=== PATIENT | male | born 1980 | race Two or more races ===

== ENCOUNTER 2018-04-08 11:33 | Emergency (ER) | payer SELFPAY ==
[2018-04-08] MEDS ORDERED: Ketorolac 60 MG/2 ML SDV IM ONE (12:24)
--- NOTE | 2018-04-08 13:33 | CR ---
EXAMINATION: Lumbar spine HISTORY: Pain COMPARISON: None TECHNIQUE: AP and lateral views FINDINGS: The lumbar spinal alignment is normal. The vertebral body heights and disc spaces appear well-maintained. No fracture or acute osseous or metallic. Bone mineralization is normal. SI joints are symmetric. IMPRESSION: Unremarkable lumbar spine.
--- NOTE | 2018-04-08 13:47 | EDM.PDOC ---
ED HPI GENERAL MEDICAL PROBLEM - General Chief Complaint: Back Pain or Injury Stated Complaint: BACK PAIN Time Seen by Provider: 04/08/18 11:39 Source of Information: Reports: Patient History Limitations: Reports: No Limitations - History of Present Illness INITIAL COMMENTS - FREE TEXT/NARRATIVE: HISTORY AND PHYSICAL: History of present illness: Patient is a 37-year-old male who presents to the emergency room today with complaints of mid lumbar back pain that radiates into the right side. He states he did not have any injury, trauma or heavy lifting/repetitive motion. States he started having the mid back pain approximately 2-3 days ago which has progressively gotten worse. He states that the muscles feel "stiff". He denies any fever, chills, chest pain, shortness of breath or cough. Denies any abdominal pain, nausea, vomiting, diarrhea, constipation or dysuria. Denies any numbness or tingling to his distal extremities. He has been able to walk appropriately. Review of systems: As per history of present illness and below otherwise all systems reviewed and negative. Past medical history: As per history of present illness and as reviewed below otherwise noncontributory. Surgical history: As per history of present illness and as reviewed below otherwise noncontributory. Social history: See social history for further information Family history: As per history of present illness and as reviewed below otherwise noncontributory. Physical exam: General: Well-developed and well-nourished 37-year-old male. Alert and oriented. Nontoxic appearing and in no acute distress. HEENT: Atraumatic, normocephalic, pupils equal and reactive bilaterally, negative for conjunctival pallor or scleral icterus, mucous membranes moist, TMs normal bilaterally, throat clear, neck supple, nontender, trachea midline. No drooling or trismus noted. No meningeal signs. No hot potato voice noted. Lungs: Clear to auscultation, breath sounds equal bilaterally, chest nontender. Heart: S1S2, regular rate and rhythm without overt murmur Abdomen: Soft, nondistended, nontender. Negative for masses or hepatosplenomegaly. Negative for costovertebral tenderness. Pelvis: Stable nontender. Genitourinary: Deferred. Rectal: Deferred. Skin: Intact, warm, dry. No lesions or rashes noted. C-spine/Back: No pinpoint vertebral tenderness upon palpation. No crepitus, step -offs or obvious deformities. He is ambulatory into the emergency room and able to walk on his heels and toes without difficulty. He denies any numbness, tingling or satellite paresthesias. Denies any urinary or fecal incontinence. He does have some muscular tenderness to the paraspinous muscles to the mid lumbar region and right above the right hip bone. Extremities: Atraumatic, negative for cords or calf pain. Neurovascular unremarkable. Neuro: Awake, alert, oriented. Cranial nerves II through XII unremarkable. Cerebellum unremarkable. Motor and sensory unremarkable throughout. Exam nonfocal. Diagnostics: Lumbar spine x-ray Therapeutics: Toradol Prescription: Tramadol and Flexeril, No. 20 Impression: Lumbar back pain with sciatica Plan: 1. Gentle heat and stretching to the area. 2. Please take ibuprofen routinely along with the medications as prescribed. These medications may cause drowsiness a do not take them all driving or needing to be functioning outside of the house. 3. Please follow-up with your primary caregiver next week. Return to the ED as needed and as discussed. Definitive disposition and diagnosis as appropriate pending reevaluation and review of above. - Related Data Home Meds: Home Meds Cyclobenzaprine [Flexeril] 10 mg PO TID PRN #20 tab 04/08/18 [Rx] traMADol [Ultram] 50 mg PO Q6H PRN #20 tab 04/08/18 [Rx] ED ROS GENERAL - Review of Systems Review Of Systems: ROS reveals no pertinent complaints other than HPI. ED EXAM,LOWER BACK PAIN/INJURY - Physical Exam Exam: See Below (See dictation) Course - Orders/Labs/Meds Meds: Medications Discontinued Medications Generic Name Dose Route Start Last Admin Trade Name Freq PRN Reason Stop Dose Admin Ketorolac Tromethamine 60 mg 04/08/18 12:24 04/08/18 13:34 Toradol IM 04/08/18 12:25 60 mg ONETIME ONE Administration Departure - Departure Time of Disposition: 13:46 Disposition: Home, Self-Care 01 Clinical Impression: Back pain of lumbar region with sciatica - Discharge Information Prescriptions: Cyclobenzaprine [Flexeril] 10 mg PO TID PRN #20 tab PRN Reason: Muscle Spasm traMADol [Ultram] 50 mg PO Q6H PRN #20 tab PRN Reason: Pain Forms: ED Department Discharge Additional Instructions: The following information is given to patients seen in the emergency department who are being discharged to home. This information is to outline your options for follow-up care. We provide all patients seen in our emergency department with a follow-up referral. The need for follow-up, as well as the timing and circumstances, are variable depending upon the specifics of your emergency department visit. If you don't have a primary care physician on staff, we will provide you with a referral. We always advise you to contact your personal physician following an emergency department visit to inform them of the circumstance of the visit and for follow-up with them and/or the need for any referrals to a consulting specialist. The emergency department will also refer you to a specialist when appropriate. This referral assures that you have the opportunity for follow-up care with a specialist. All of these measure are taken in an effort to provide you with optimal care, which includes your follow-up. Under all circumstances we always encourage you to contact your private physician who remains a resource for coordinating your care. When calling for follow-up care, please make the office aware that this follow-up is from your recent emergency room visit. If for any reason you are refused follow-up, please contact the [facility] Emergency Department at and asked to speak to the emergency department charge nurse. [facility] [address] [place], [place] [id number] [place] [id number] 1. Gentle heat and stretching to the area. 2. Please take ibuprofen routinely along with the medications as prescribed. These medications may cause drowsiness a do not take them all driving or needing to be functioning outside of the house. 3. Please follow-up with your primary caregiver next week. Return to the ED as needed and as discussed.
== END 2018-04-08 14:28 | disposition home or self-care (01) ==
LOC: MW.ED 11:33
DX: M54.41 Lumbago with sciatica, right side (principal)
CPT/HCPCS: 72100; 96372; 99283; J1885

== ENCOUNTER 2018-06-14 20:42 | Emergency (ER) | payer SELFPAY ==
--- NOTE | 2018-06-14 20:48 | EDM.PDOC ---
ED HPI GENERAL MEDICAL PROBLEM - General Chief Complaint: Chest Pain Stated Complaint: CHEST PAIN Time Seen by Provider: 06/14/18 20:46 - History of Present Illness INITIAL COMMENTS - FREE TEXT/NARRATIVE: HISTORY AND PHYSICAL: History of present illness: Patient 37 year old male presents with a concern of left-sided chest pain 1 week this is reproducible stenosis at shortest breath nausea vomiting fever chills or other complaints he is a smoker Review of systems: As per history of present illness and below otherwise all systems reviewed and negative. Past medical history: As per history of present illness and as reviewed below otherwise noncontributory. Surgical history: As per history of present illness and as reviewed below otherwise noncontributory. Social history: No reported history of drug or alcohol abuse. Family history: As per history of present illness and as reviewed below otherwise noncontributory. Physical exam: HEENT: Atraumatic, normocephalic, pupils reactive, negative for conjunctival pallor or scleral icterus, mucous membranes moist, throat clear, neck supple, nontender, trachea midline. Lungs: Clear to auscultation, breath sounds equal bilaterally, chest localized tenderness over his left upper chest. Heart: S1S2, regular, negative for clicks, rubs, or JVD. Abdomen: Soft, nondistended, nontender. Negative for masses or hepatosplenomegaly. Negative for costovertebral tenderness. Pelvis: Stable nontender. Genitourinary: Deferred. Rectal: Deferred. Extremities: Atraumatic, negative for cords or calf pain. Neurovascular unremarkable. Neuro: Awake, alert, oriented. Cranial nerves II through XII unremarkable. Cerebellum unremarkable. Motor and sensory unremarkable throughout. Exam nonfocal. Diagnostics: CBC CMP troponin chest x-ray EKG Therapeutics: None Impression: #1 chest pain probable muscle skeletal etiology Definitive disposition and diagnosis as appropriate pending reevaluation and review of above. - Related Data Allergies Allergy/AdvReac Type Severity Reaction Status Date / Time No Known Allergies Allergy Verified 06/14/18 20:45 Home Meds: Home Meds . [No Known Home Meds] 06/14/18 [History] Past Medical History - Past Health History Medical/Surgical History: Denies Medical/Surgical History Social & Family History - Family History Family Medical History: Noncontributory - Caffeine Use Caffeine Use: Reports: None ED ROS GENERAL - Review of Systems Review Of Systems: ROS reveals no pertinent complaints other than HPI. ED EXAM, GENERAL - Physical Exam Exam: See Below (See dictation) Course - Orders/Labs/Meds Orders: Active Orders 24 hr Category Date Time Status EKG Documentation Completion [RC] STAT Care 06/14/18 20:46 Active Chest 1V Frontal [CR] Stat Exams 06/14/18 20:46 Ordered CBC WITH AUTO DIFF [HEME] Stat Lab 06/14/18 20:46 Ordered COMPREHENSIVE METABOLIC PN,CMP [CHEM] Stat Lab 06/14/18 20:46 Ordered TROPONIN I [CHEM] Stat Lab 06/14/18 20:46 Ordered Departure - Departure Time of Disposition: 20:48 Disposition: Home, Self-Care 01 Condition: Good Clinical Impression: Chest pain - Discharge Information Additional Instructions: The following information is given to patients seen in the emergency department who are being discharged to home. This information is to outline your options for follow-up care. We provide all patients seen in our emergency department with a follow-up referral. The need for follow-up, as well as the timing and circumstances, are variable depending upon the specifics of your emergency department visit. If you don't have a primary care physician on staff, we will provide you with a referral. We always advise you to contact your personal physician following an emergency department visit to inform them of the circumstance of the visit and for follow-up with them and/or the need for any referrals to a consulting specialist. The emergency department will also refer you to a specialist when appropriate. This referral assures that you have the opportunity for followup care with a specialist. All of these measure are taken in an effort to provide you with optimal care, which includes your followup. Under all circumstances we always encourage you to contact your private physician who remains a resource for coordinating your care. When calling for followup care, please make the office aware that this follow-up is from your recent emergency room visit. If for any reason you are refused follow-up, please contact the [facility] emergency department at and asked to speak to the emergency department charge nurse. Motrin/Tylenol as directed follow primary medical doctor as needed as discussed return as needed as discussed
--- NOTE | 2018-06-14 21:11 | CR ---
INDICATION: Chest pain. TECHNIQUE: PA chest. FINDINGS: Clear lungs. Normal heart size and pulmonary vascularity. Normal included skeletal thorax. IMPRESSION: Negative PA chest. Dictated by Adal Morris MD @ Jun 14 2018 9:10PM Signed by Dr. Adal Morris @ Jun 14 2018 9:11PM
[2018-06-14 21:38] LABS: CHLORIDE,CL 106 mmol/L (98-107); SODIUM,NA 140 mmol/L (136-148)
== END 2018-06-14 22:00 | disposition home or self-care (01) ==
LOC: MW.ED 20:42
DX: R07.9 Chest pain, unspecified (principal); F17.200 Nicotine dependence, unspecified, uncomplicated
CPT/HCPCS: 36415; 71045; 71045-26; 80053; 81003; 84484; 85025; 93005; 99285-25

== ENCOUNTER 2019-07-27 18:13 | Emergency (ER) | payer SELFPAY ==
[2019-07-27] MEDS ORDERED: Orphenadrine 60 MG/2 ML Inj IM ONE (18:34)
[2019-07-27] MEDS ORDERED: Ketorolac 60 MG/2 ML SDV IM ONE (18:34)
--- NOTE | 2019-07-27 18:34 | EDM.PDOC ---
<Katherine Dee E - Last Filed: 07/27/19 18:36> ED HPI GENERAL MEDICAL PROBLEM - General Chief Complaint: General Stated Complaint: LOCK JAW Time Seen by Provider: 07/27/19 18:16 Source of Information: Reports: Patient History Limitations: Reports: No Limitations - History of Present Illness INITIAL COMMENTS - FREE TEXT/NARRATIVE: HISTORY AND PHYSICAL: History of present illness: Patient is a 38-year-old male who presents to the emergency room with complaints of left jaw pain and difficulty completely opening his mouth x3 days. He states over the past several months he has had this happen to him before but typically will resolve on its own. When the pain started he describes a "popping sensation" to the left upper jaw. Areas tender with palpation. Patient denies any fever, chills, headache, change in vision, syncope or near syncope. Denies any chest pain, back pain, shortness of breath or cough. Denies any GI or symptoms. Patient has been eating and drinking appropriately. Review of systems: As per history of present illness and below otherwise all systems reviewed and negative. Past medical history: As per history of present illness and as reviewed below otherwise noncontributory. Surgical history: As per history of present illness and as reviewed below otherwise noncontributory. Social history: See social history for further information Family history: As per history of present illness and as reviewed below otherwise noncontributory. Physical exam: General: Well-developed and well-nourished 38-year-old male. Alert and oriented. Nontoxic-appearing and in no acute distress. HEENT: Atraumatic, normocephalic, pupils equal and reactive bilaterally, negative for conjunctival pallor or scleral icterus, mucous membranes moist, TMs normal bilaterally, throat clear, neck supple, nontender, trachea midline. No drooling. Pain with palpation of left TMJ with tension felt of the muscle. No meningeal signs. No hot potato voice noted. Lungs: Clear to auscultation, breath sounds equal bilaterally. Heart: S1S2, regular rate and rhythm without overt murmur Abdomen: Soft, nondistended, nontender. Skin: Intact, warm, dry. No lesions or rashes noted. Extremities: Atraumatic, moves all extremities per self without difficulty or deficits, negative for cords or calf pain. Neurovascular unremarkable. Neuro: Awake, alert, oriented. Cranial nerves II through XII unremarkable. Cerebellum unremarkable. Motor and sensory unremarkable throughout. Exam nonfocal. Notes: Dr Mora evaluated this patient and assisted with plan of care. Medication and supportive care measures were reviewed and discussed. Voices understanding and is agreeable to plan of care. Denies any further questions or concerns at this time. Diagnostics: None Therapeutics: Norflex, Toradol Prescription: Flexeril, Diclofenac Impression: TMJ Plan: 1. Joint rest, avoid chewing gum, biting nails, or excessive talking. Reduce stress. 2. Soft diet (to avoid excessive chewing or tough/hard foods). 3. Take the medications as prescribed. The Flexeril can cause some drowsiness so do not take it while driving or needing to be functioning outside of the house. 4. Follow up with dentist as we discussed. Dr Db DUNAWAY does treat TMJ; can call at 5. Return to the ED as needed and discussed. Definitive disposition and diagnosis as appropriate pending reevaluation and review of above. - Related Data Allergies Allergy/AdvReac Type Severity Reaction Status Date / Time No Known Allergies Allergy Verified 07/27/19 18:25 Home Meds: Home Meds Cyclobenzaprine [Flexeril] 10 mg PO TID PRN #21 tab 07/27/19 [Rx] Diclofenac Sodium [Voltaren] 75 mg PO BIDMEALS PRN #30 tab.cr 07/27/19 [Rx] Past Medical History - Past Health History Medical/Surgical History: Denies Medical/Surgical History HEENT History: Reports: None Cardiovascular History: Reports: None Respiratory History: Reports: None Gastrointestinal History: Reports: None Genitourinary History: Reports: None Musculoskeletal History: Reports: None Neurological History: Reports: None Psychiatric History: Reports: None Endocrine/Metabolic History: Reports: None Hematologic History: Reports: None Dermatologic History: Reports: None - Infectious Disease History Infectious Disease History: Reports: None Social & Family History - Family History Family Medical History: Noncontributory - Caffeine Use Caffeine Use: Reports: None ED ROS GENERAL - Review of Systems Review Of Systems: Comprehensive ROS is negative, except as noted in HPI. ED EXAM, GENERAL - Physical Exam Exam: See Below (See dictation) Course - Vital Signs Last Recorded V/S: Last Vital Signs Temp 36.2 C 07/27/19 18:25 Pulse 101 H 07/27/19 18:25 Resp 18 07/27/19 18:25 BP 122/80 07/27/19 18:25 Pulse Ox 98 07/27/19 18:25 - Orders/Labs/Meds Meds: Medications Discontinued Medications Generic Name Dose Route Start Last Admin Trade Name Freq PRN Reason Stop Dose Admin Ketorolac Tromethamine 60 mg 07/27/19 18:34 07/27/19 18:37 Toradol IM 07/27/19 18:35 60 mg ONETIME ONE Administration Orphenadrine Citrate 60 mg 07/27/19 18:34 07/27/19 18:39 Norflex IM 07/27/19 18:35 60 mg ONETIME ONE Administration Departure - Departure Time of Disposition: 18:43 Disposition: Home, Self-Care 01 Clinical Impression: TMJ (temporomandibular joint disorder) - Discharge Information Prescriptions: Cyclobenzaprine [Flexeril] 10 mg PO TID PRN #21 tab PRN Reason: Muscle Spasm Diclofenac Sodium [Voltaren] 75 mg PO BIDMEALS PRN #30 tab.cr PRN Reason: Pain Forms: ED Department Discharge Additional Instructions: The following information is given to patients seen in the emergency department who are being discharged to home. This information is to outline your options for follow-up care. We provide all patients seen in our emergency department with a follow-up referral. The need for follow-up, as well as the timing and circumstances, are variable depending upon the specifics of your emergency department visit. If you don't have a primary care physician on staff, we will provide you with a referral. We always advise you to contact your personal physician following an emergency department visit to inform them of the circumstance of the visit and for follow-up with them and/or the need for any referrals to a consulting specialist. The emergency department will also refer you to a specialist when appropriate. This referral assures that you have the opportunity for follow-up care with a specialist. All of these measure are taken in an effort to provide you with optimal care, which includes your follow-up. Under all circumstances we always encourage you to contact your private physician who remains a resource for coordinating your care. When calling for follow-up care, please make the office aware that this follow-up is from your recent emergency room visit. If for any reason you are refused follow-up, please contact the [facility] Emergency Department at and asked to speak to the emergency department charge nurse. [facility] [address] [place] [address] [address] 1. Joint rest, avoid chewing gum, biting nails, or excessive talking. Reduce stress. 2. Soft diet (to avoid excessive chewing or tough/hard foods). 3. Take the medications as prescribed. The Flexeril can cause some drowsiness so do not take it while driving or needing to be functioning outside of the house. 4. Follow up with dentist as we discussed. Dr Db DUNAWAY does treat TMJ; can call at 5. Return to the ED as needed and discussed. Sepsis Event Note - Focused Exam Vital Signs: Vital Signs Temp Pulse Resp BP Pulse Ox 07/27/19 18:25 36.2 C 101 H 18 122/80 98 Date Exam was Performed: 07/27/19 Time Exam was Performed: 18:36 <Adal Mora - Last Filed: 07/27/19 18:46> ED HPI GENERAL MEDICAL PROBLEM Left jaw Pain Score (Numeric/FACES): 8 ED GENERAL MEDICAL PROCEDURES - Additional/Other Procedure(s) Other (Free Text) Procedure(s): Osteopathic manual treatment using craniosacral, high velocity low amplitude and muscle energy vocal spine and TMJ with moderate results were performed. Patient tolerated the procedure well Sepsis Event Note - Focused Exam Date Exam was Performed: 07/27/19 Time Exam was Performed: 18:45
== END 2019-07-27 19:00 | disposition home or self-care (01) ==
LOC: MW.ED 18:13
DX: M26.602 Left temporomandibular joint disorder, unspecified (principal)
CPT/HCPCS: 96372; 99283; J1885; J2360; 99282

== ENCOUNTER 2022-03-15 10:31 | Emergency (ER) | payer BC ==
[2022-03-15] MEDS ORDERED: Ketorolac 30 MG/ML SDV IM STA (11:27)
[2022-03-15] MEDS ORDERED: Ondansetron 4 MG Tab.DIS PO ONE (11:27)
[2022-03-15] MEDS ORDERED: Amoxicillin 500 MG Cap PO STA ×2 (11:31→12:11)
[2022-03-15 12:06] LABS: CORONAVIRUS COVID-19 NAA NEGATIVE (NEGATIVE); INFLUENZA A NAA POSITIVE (NEGATIVE); INFLUENZA B NAA NEGATIVE (NEGATIVE)
== END 2022-03-15 12:55 | disposition home or self-care (01) ==
LOC: MW.ED 10:31
DX: J10.83 Influenza due to other identified influenza virus with otitis media (principal); Z72.0 Tobacco use; Z20.822 Contact with and (suspected) exposure to COVID-19
CPT/HCPCS: 0240U; 71045; 96372; 99284; A9270; J1885

== ENCOUNTER 2024-05-25 20:47 | Inpatient (IN) | payer BC ==
[2024-05-25] MEDS: Sodium Chloride 0.9% 10 ML Syringe FLUSH PRN (22:13)
[2024-05-25] MEDS: Ketorolac 30 MG/ML SDV IVPUSH ONE (22:13)
[2024-05-25] MEDS: Sodium Chloride 0.9% 2.5 ML Syringe FLUSH PRN (22:13)
[2024-05-25 22:19] LABS: HEMATOCRIT 47.2 % (42.0-52.0); HEMOGLOBIN 16.2 g/dL (14.0-18.0); MEAN CORPUSCULAR HEMOGLOBIN 31.2 pg (28.0-32.0); MEAN CORPUSCULAR HGB CONC 34.3 g/dL (32.0-36.0); MEAN CORPUSCULAR VOLUME 90.8 fL (83.0-99.0); MEAN PLATELET VOLUME 9.7 fL (9.4-12.4); PLATELET COUNT,PLT 363 K/uL (150-400); WHITE BLOOD CELL COUNT,WBC 24.99 K/uL (3.9-11.3)
[2024-05-25 22:44] LABS: BILIRUBIN TOTAL 0.8 mg/dL (0.2-1.0); CALCIUM 9.2 mg/dL (8.5-10.1); CARBON DIOXIDE,CO2 24.9 mmol/L (21.0-32.0); CREATININE 1.3 mg/dL (0.8-1.3); EST CRCL DRUG DOSING (CG) 64.39 mL/min; POTASSIUM,K 4.6 mmol/L (3.5-5.1)
[2024-05-25 22:49] LABS: LACTIC ACID 1.5 mmol/L (0.4-2.0)
[2024-05-25 22:55] LABS: LYMPHOCYTES ABSOLUTE MAN 1.25 K/uL (1.00-4.80); LYMPHOCYTES PERCENT MAN 5 % (24-44); MONOCYTES PERCENT MAN 8 % (0-8); SEG NEUTROPHILS ABSOLUTE MAN 21.74 K/uL (1.80-7.70); SEG NEUTROPHILS PERCENT MAN 87 % (41-71)
[2024-05-25] MEDS: cefTRIAXone 2 GM in Sodium Chloride 0.9% 50 ML IV ONE (23:06)
[2024-05-25] MEDS: Acetaminophen 500 MG Tab PO ONE (23:19)
[2024-05-25 23:30] LABS: APPEARANCE,URINE CLEAR; GLUCOSE,URINE NEGATIVE (NEGATIVE); KETONES,URINE 40 mg/dL (NEGATIVE); LEUKOCYTE ESTERASE,URINE NEGATIVE (NEGATIVE); NITRITE,URINE NEGATIVE (NEGATIVE); OCCULT BLOOD,URINE NEGATIVE (NEGATIVE); PROTEIN,URINE TRACE mg/dL (NEGATIVE)
[2024-05-25 23:39] LABS: BILIRUBIN,URINE SMALL (NEGATIVE); COLOR,URINE DARK YELLOW
[2024-05-26 00:07] LABS: CORONAVIRUS COVID-19 NAA NEGATIVE (NEGATIVE); INFLUENZA A NAA NEGATIVE (NEGATIVE); INFLUENZA B NAA NEGATIVE (NEGATIVE)
[2024-05-26 00:12] LABS: BACTERIA,URINE NOT SEEN (NEGATIVE); EPITHELIAL CELLS,URINE NOT SEEN (NONE-FEW); RBC,URINE 0-1 (0-2/HPF); WBC,URINE 0-1 (0-5/HPF)
[2024-05-26] MEDS ORDERED: Albuterol/Ipratropium 3.0-0.5 MG/3 ML Neb Soln NEB PRN (01:59)
[2024-05-26] MEDS: Azithromycin 500 MG in Sodium Chloride 0.9% 250 ML IV SCH (02:42)
[2024-05-26] MEDS: Sodium Chloride 0.9% 1,000 ML IV SCH (02:42)
[2024-05-26] MEDS: Ondansetron 4 MG/2 ML SDV IVPUSH PRN (02:45)
[2024-05-26 05:55] LABS: HEMATOCRIT 40.5 % (42.0-52.0); MEAN CORPUSCULAR HEMOGLOBIN 31.5 pg (28.0-32.0); MEAN CORPUSCULAR HGB CONC 34.6 g/dL (32.0-36.0); MEAN CORPUSCULAR VOLUME 91.2 fL (83.0-99.0); MEAN PLATELET VOLUME 10.1 fL (9.4-12.4); PLATELET COUNT,PLT 336 K/uL (150-400); RED BLOOD CELL COUNT 4.44 M/uL (4.52-5.90); WHITE BLOOD CELL COUNT,WBC 24.26 K/uL (3.9-11.3)
[2024-05-26 06:25] LABS: CALCIUM 8.4 mg/dL (8.5-10.1); CARBON DIOXIDE,CO2 23.2 mmol/L (21.0-32.0); EST CRCL DRUG DOSING (CG) 83.71 mL/min; POTASSIUM,K 3.9 mmol/L (3.5-5.1)
[2024-05-26 06:45] LABS: BASOPHILS ABSOLUTE MAN 0.24 K/uL (0.00-0.20); BASOPHILS PERCENT MAN 1 % (0-1); EOSINOPHILS ABSOLUTE MAN 0.24 K/uL (0.00-0.45); EOSINOPHILS PERCENT MAN 1 % (0-6); LYMPHOCYTES ABSOLUTE MAN 2.18 K/uL (1.00-4.80); LYMPHOCYTES PERCENT MAN 9 % (24-44); MONOCYTES ABSOLUTE MAN 2.43 K/uL (0.00-0.80); MONOCYTES PERCENT MAN 10 % (0-8); SEG NEUTROPHILS ABSOLUTE MAN 19.17 K/uL (1.80-7.70); SEG NEUTROPHILS PERCENT MAN 79 % (41-71)
[2024-05-26] MEDS: Acetaminophen 325 MG Tab PO PRN (08:18)
[2024-05-26] MEDS ORDERED: Morphine 2 MG/ML SYRINGE IVPUSH PRN (09:54)
[2024-05-26] MEDS ORDERED: Naloxone 0.4 MG/ML SDV IVPUSH PRN (09:54)
[2024-05-26] MEDS ORDERED: Sodium Chloride 0.9% 2.5 ML Syringe FLUSH PRN (09:55)
[2024-05-26] MEDS ORDERED: Sodium Chloride 0.9% 10 ML Syringe FLUSH PRN (09:55)
[2024-05-26] MEDS: Sodium Chloride 0.9% 1,000 ML IV ONE (10:21)
[2024-05-26] MEDS: Enoxaparin 40 MG/0.4 ML Syringe SUBCUT SCH (11:19)
[2024-05-26] MEDS: Benzocaine/Cetylpyridinium/Menthol Lozenge MUCMEM PRN (12:47)
[2024-05-26 12:55] LABS: CORONAVIRUS COVID-19 NAA NEGATIVE (NEGATIVE); INFLUENZA A NAA NEGATIVE (NEGATIVE); INFLUENZA B NAA NEGATIVE (NEGATIVE); RESPIRATORY SYNCYTIAL VIR NAA NEGATIVE (NEGATIVE)
[2024-05-26] MEDS ORDERED: Calcium Carbonate 500 MG Tab.Chew PO PRN (13:21)
[2024-05-26] MEDS ORDERED: Gabapentin 100 MG Cap PO PRN (14:00)
[2024-05-26] MEDS: Ketorolac 30 MG/ML SDV IVPUSH PRN (14:01)
[2024-05-26] MEDS: Pantoprazole 40 MG in Sodium Chloride 0.9% 10 ML IVPUSH ONE (14:02)
[2024-05-26] MEDS: Fluticasone NASAL Spray 16 GM Bottle NASBOTH SCH (18:27)
[2024-05-26] MEDS: cefTRIAXone 1 GM in Sodium Chloride 0.9% 50 ML IV SCH (22:09)
[2024-05-27 05:06] LABS: BORDETELLA PARAPERT IS1001 Not Detected (Not Detected)
[2024-05-27] MEDS: Pantoprazole 40 MG Tab.CR PO SCH (06:03)
[2024-05-27 06:45] LABS: HEMATOCRIT 41.1 % (42.0-52.0); HEMOGLOBIN 13.6 g/dL (14.0-18.0); MEAN CORPUSCULAR HEMOGLOBIN 30.7 pg (28.0-32.0); MEAN CORPUSCULAR HGB CONC 33.1 g/dL (32.0-36.0); MEAN CORPUSCULAR VOLUME 92.8 fL (83.0-99.0); MEAN PLATELET VOLUME 10.1 fL (9.4-12.4); PLATELET COUNT,PLT 320 K/uL (150-400); RED BLOOD CELL COUNT 4.43 M/uL (4.52-5.90); WHITE BLOOD CELL COUNT,WBC 17.59 K/uL (3.9-11.3)
[2024-05-27 07:12] LABS: A/G RATIO 0.8 (0.9-1.6); ALBUMIN 2.9 g/dL (3.4-5.0); BILIRUBIN TOTAL 0.4 mg/dL (0.2-1.0); CALCIUM 8.4 mg/dL (8.5-10.1); CARBON DIOXIDE,CO2 22.3 mmol/L (21.0-32.0); CREATININE 0.9 mg/dL (0.8-1.3); EST CRCL DRUG DOSING (CG) 93.01 mL/min; MAGNESIUM 1.7 mg/dL (1.8-2.4); POTASSIUM,K 3.9 mmol/L (3.5-5.1); PROTEIN TOTAL,TP 6.5 g/dL (6.4-8.2)
[2024-05-27 07:25] LABS: LYMPHOCYTES ABSOLUTE MAN 2.64 K/uL (1.00-4.80); LYMPHOCYTES PERCENT MAN 15 % (24-44); MONOCYTES ABSOLUTE MAN 2.29 K/uL (0.00-0.80); MONOCYTES PERCENT MAN 13 % (0-8); SEG NEUTROPHILS ABSOLUTE MAN 12.66 K/uL (1.80-7.70); SEG NEUTROPHILS PERCENT MAN 72 % (41-71)
[2024-05-27] MEDS: Azithromycin 250 MG Tab PO ONE (08:28)
[2024-05-27] MEDS: Magnesium Oxide 400 MG Tab PO ONE (08:28)
[2024-05-27] MEDS: Cefdinir 300 MG Cap PO ONE (08:28)
[2024-05-30 20:03] LABS: HAV AB IGM Negative (Negative); HBC IGM Negative (Negative); HEP B SURG AG Negative (Negative); HEP C AB BY CIA Negative (Negative); HEP C AB BY CIA INDEX 0.04 IV
== END 2024-05-27 08:58 | disposition home or self-care (01) | DRG 723 ==
LOC: MW.ED 20:47 → MW.MS 05-26 00:19 → OBSVTOIN 05-26 00:38 → MW.MS 05-26 00:39
PROVIDERS: ADMIT Family Medicine; ATTEND Family Medicine
DX: B34.9 Viral infection, unspecified (principal); R65.10 Systemic inflammatory response syndrome (SIRS) of non-infectious origin without acute organ dysfunction; F17.210 Nicotine dependence, cigarettes, uncomplicated; F15.90 Other stimulant use, unspecified, uncomplicated; M60.859 Other myositis, unspecified thigh; J98.11 Atelectasis; Z86.16 Personal history of COVID-19; Z90.49 Acquired absence of other specified parts of digestive tract
CPT/HCPCS: 0240U; 0241U; 36415; 71046; 71046-26; 71250; 71250-26; 74176; 74176-26; 80048; 80053; 80074; 81001; 82550; 83605; 83735; 85025; 85652; 86140; 86308; 86592; 87040; 87389; 87428-QW; 87486; 87581; 87633; 87651; 87899; 93005; 93010; 96361; 96365; 96375; 99222; 99239; 99285; 99285-25; A9270-GY; J0456; J0696; J1885; J2405; J2470; J3490; J7030; J7050; J7120